=== PATIENT | female | born 1955 | race Caucasian/White ===

== ENCOUNTER 2017-07-24 06:28 | Emergency (ER) | payer BC ==
[2017-07-24 07:22] LABS: Hemoglobin 14.1 g/dL (12.0-16.0); Mean Corpuscular HGB CONC 33.7 g/dL (32.0-36.0); Mean Corpuscular Hemoglobin 30.4 pg (27.0-31.0); Mean Corpuscular Volume 90.2 fl (81.0-99.0); Mean Platelet Volume 7.1 fL (7.4-10.4); Platelet Count 200 thou/uL (130-400); RBC Distribution Width 13.1 % (11.5-14.5); Red Blood Cell (RBC) Count 4.63 mill/uL (4.20-5.40); White Blood Cell (WBC) Count 12.6 thou/uL (4.8-10.8)
[2017-07-24 07:28] LABS: ALT (SGPT) 77 U/L (8-55); AST (SGOT) 113 U/L (5-34); Alkaline Phosphatase 89 U/L (40-150); Anion Gap 15 mmol/L (10-20); BUN (Urea Nitrogen) 6 mg/dL (9.8-20.1); Bilirubin, Total 1.6 mg/dL (0.2-1.2); Calc. Creatinine Clearance 0 mL/min (70-130); Carbon Dioxide 23 mmol/L (22-29); Chloride 103 mmol/L (98-107); Estimated GFR-MDRD 85; Globulin 3.1 g/dL (2.4-3.5); Glucose 132 mg/dL (70-105); Potassium 3.6 mmol/L (3.5-5.1); Protein, Total 7.1 g/dL (6.0-8.3); Sodium 137 mmol/L (136-145)
--- NOTE | 2017-07-24 07:40 | RAD ---
CHEST 1 VIEW: HISTORY: Fever. Cough. FINDINGS: No comparison. Cardiac silhouette is magnified and upper limits of normal in size. Lungs are hyperi nflated. Pulmonary vasculature is slightly engorged. Predominantly interstitial infiltrate projects over the left lung base. Postoperative changes right lung with extensive scarring at the right lung base. Some calcification and focal parenchymal opacity. No evidence of pneumothorax. The patient is slightly rotated rightward. IMPRESSION: 1. Postoperative changes right lower lobe. Scarring and postoperative changes favored to be cause f or opacities. 2. Left lower lobe interstitial infiltrate. Clinical correlation regarding other signs and symptoms of left lower lobe pneumonitis is required. Please consider radiographic followup after medical cuca atment to evaluate for clearing. POS: [facility]
[2017-07-24 07:41] LABS: Band 1 % (5-11); Lymphocytes 12 % (21-51); MDiff Complete? YES; Monocytes 7 % (0-10); Neutrophil 77 % (42-75); Reactive Lymphocytes 3 % (0-10)
[2017-07-24 08:04] LABS: Bilirubin Negative (Negative); Blood, Urine Negative (Negative); Clarity CLEAR (Clear); Glucose, Urine (Dipstick) Negative (Negative); Leukocyte Negative (Negative); Nitrite Negative (Negative); Protein, Urine (Dipstick) Negative (Neg-Trace); Specific Gravity, Urine 1.014 (1.002-1.036); pH, Urine 6.5 (5.0-9.0)
== END 2017-07-24 09:39 | disposition home or self-care (01) ==
LOC: ERS 06:28
DX: J18.9 Pneumonia, unspecified organism (principal); D80.3 Selective deficiency of immunoglobulin G [IgG] subclasses; Z79.899 Other long term (current) drug therapy
CPT/HCPCS: 71045; 80053; 81003; 83605; 85025; 87040; 93005; 94640; 96361; 96365; 96366; J1956; J7620